=== PATIENT | female | born 1990 | race Two or more races ===

== ENCOUNTER 2025-04-06 15:52 | Outpatient (CLI) | payer BC | END 2025-04-06 17:00 | disposition home or self-care (01) | LOC: LAB 15:52 | DX: N92.0 Excessive and frequent menstruation with regular cycle (principal) | CPT/HCPCS: 36415; 84144; 84702 ==

== ENCOUNTER 2025-05-04 11:56 | Outpatient (CLI) | payer BC ==
[2025-05-04 12:48] LABS: Hematocrit 37.8 % (36.0-46.0); Hemoglobin 12.8 g/dL (12.2-16.2); Mean Corpuscular Hemoglobin 28.9 pg (28.0-32.0); Mean Corpuscular Volume 85.5 fL (80.0-100.0); Nucleated Red Blood Cells % 0.0 %
[2025-05-04 13:07] LABS: Alanine Aminotransferase 13 U/L (7-40); Albumin 4.6 g/dL (3.2-4.8); Alkaline Phosphatase 60 U/L (46-116); Anion Gap 10 (5-15); BUN/Creatinine Ratio 15.9 (10.0-20.0); Bilirubin, Total 0.5 mg/dL (0.2-1.0); Blood Urea Nitrogen 10 mg/dL (9-23); Calcium 9.5 mg/dL (8.7-10.4); Carbon Dioxide 24 mmol/L (20-31); Chloride 102 mmol/L (98-107); Glucose 82 mg/dL (74-106); Potassium 3.5 mmol/L (3.5-5.1); Sodium 136 mmol/L (136-145); Total Protein 8.1 g/dL (5.7-8.2)
[2025-05-04 13:09] LABS: Thyroid Stimulating Hormone 1.66 uIU/mL (0.55-4.78)
[2025-05-04 13:17] LABS: Beta HCG, Quantitative 72307.8 mIU/mL (1.5-4.2)
[2025-05-04 13:21] LABS: Amphetamine Screen, Urine Neg (NEGATIVE); Barbiturate Scree,Urine Neg (NEGATIVE); Benzodiazephine Screen, Urine Neg (NEGATIVE); Cocaine Screen, Urine Neg (NEGATIVE); Opiate Scree,Urine Neg (NEGATIVE)
[2025-05-04 13:25] LABS: Cannabinoid Screen, Urine Neg (NEGATIVE); Phencyclidine Screen, Urine Neg (NEGATIVE)
[2025-05-05 16:07] LABS: Chlamydia Trachomatis, NAA Negative (Negative); Neisseria gonorrhoeae, NAA Negative (Negative)
== END 2025-05-04 17:00 | disposition home or self-care (01) ==
LOC: LAB 11:56
DX: O23.40 Unspecified infection of urinary tract in pregnancy, unspecified trimester (principal); N39.0 Urinary tract infection, site not specified; Z36.0 Encounter for antenatal screening for chromosomal anomalies; Z31.430 Encounter of female for testing for genetic disease carrier status for procreative management; Z3A.00 Weeks of gestation of pregnancy not specified
CPT/HCPCS: 36415; 80053; 80307; 83036; 84439; 84443; 84702; 85025; 86703; 86762; 86780; 86787; 86850; 86900; 86901; 87086; 87340; 87902